=== PATIENT | female | born 1945 | race Caucasian/White ===

== ENCOUNTER 2018-07-06 10:09 | Outpatient (REF) | payer MEDICARE, SELFPAY ==
[2018-07-06 19:16] LABS: HCT 42.6 % (36.0-46.0); HGB 14.4 g/dL (12.0-15.5); Mean Corp. HGB Concentration 33.8 g/dL (32.0-36.0); Mean Corpuscular Hemoglobin 32.6 pg (27.0-33.0); Mean Corpuscular Volume 96.4 fL (80-95); Mean Platelet Volume 10.3 fL (8.0-11.0); Platelet Count 289 x1000/uL (130-400); RBC 4.42 m/cumm (4.00-5.20); RBC Distribution Width 12.5 % (11.7-14.6); White Blood Cell Count 7.44 k/cumm (4.4-10.8)
[2018-07-06 19:24] LABS: Iron 170 ug/dL (50-175)
[2018-07-06 19:38] LABS: Anion Gap 9.3 mmol/L (3-11); BUN 16 mg/dL (7-18); CO2 28.7 mmol/L (21.0-32.0); Calcium 9.4 mg/dL (8.5-10.1); Chloride 104 mmol/L (98-107); Estimated GFR 54.35 (mL/min/1.73m2); Ferritin 164 ng/mL (8-388); Glucose 114 mg/dL (70-100); Potassium 4.8 mmol/L (3.5-5.1); Sodium 142 mmol/L (136-145); TSH 0.99 uIU/mL (0.358-3.74)
== END 2018-07-06 10:29 ==
LOC: NCHCN 10:09
PROVIDERS: PCP Internal Medicine; Visit Provider Nurse Practitioner Family
DX: R53.83 Other fatigue (principal); R79.89 Other specified abnormal findings of blood chemistry; Z85.07 Personal history of malignant neoplasm of pancreas; R73.02 Impaired glucose tolerance (oral)
CPT/HCPCS: 80048; 85027; 82728; 83540; 84443

== ENCOUNTER 2018-10-27 14:46 | Outpatient (CLI) | payer MEDICARE, SELFPAY ==
--- NOTE | 2018-10-27 08:41 | DI.RAD_ITS ---
SYMPTOM/DIAGNOSIS: WHEEZING, R06.2 PA AND LATERAL CHEST: No priors. Heart size and pulmonary vasculature are within normal limits. The lungs are clear. No infiltrates or pneumothorax is identified. There is blunting of the posterior costophrenic angles. This may reflect scarring. No gross effusions are identified. Degenerative changes are seen in the spine. IMPRESSION: No acute pulmonary process.
== END 2018-10-27 15:06 ==
PROVIDERS: PCP Internal Medicine; Visit Provider Nurse Practitioner Family
DX: R06.2 Wheezing (principal)
CPT/HCPCS: 71046

== ENCOUNTER 2021-03-22 12:56 | Observation (INO) | payer MEDICARE, SELFPAY ==
[2021-03-22 12:59] VITALS: BP 132/83; PULSE 99; RESP 18; TEMP 36; O2SAT 98
[2021-03-22] MEDS: Normal Saline Flush 10 ML SYR IVP (13:15)
--- NOTE | 2021-03-22 13:15 | RT.EKG_ITS ---
APPROVED REPORT Exam: Resting ECG Reason for Exam: abdominal pain Patient Location: E HR:78 bpm ECG Measurements Heart Rate 78 AXIS MA 131 P 71 QRSd 80 QRS 56 QT 411 T 62 QTc 470 Conclusion Sinus rhythm...normal P axis, V-rate 60- 99
[2021-03-22 14:00] LABS: Absolute Basophil Count 0.03 10^3/uL (0.0-0.2); Absolute Eosinophil Count 0.02 10^3/uL (0.0-0.7); Absolute Lymphocyte Count 0.56 10^3/uL (1.2-3.4); Absolute Monocyte Count 1.39 10^3/uL (0.1-0.8); Absolute Neutrophil Count 14.47 10^3/uL (1.2-6.7); Basophils % 0.2; Eosinophils % 0.1; HCT 46.1 % (36.0-46.0); HGB 15.4 g/dL (11.2-15.7); Immature Grans % 0.6; Lymphocytes % 3.4; MCH 31.7 pg (27.0-33.0); MCHC 33.4 % (32.0-36.0); MCV 94.9 fL (80-95); MPV 9.5 fL (8.0-11.0); Monocytes % 8.4; Neutrophils % 87.3; Nucleated RBC 0 %; Platelet Count 289 10^3/uL (130-400); RBC 4.86 10^6/uL (3.93-5.22); RDW 13.1 % (11.7-14.6); RDW-SD 46.3 fL; WBC 16.57 10^3/uL (4.4-10.8)
[2021-03-22] MEDS: Lactated Ringers 1,000 ML 125 ML IV (14:00)
[2021-03-22] MEDS: HYDROmorphone 2 MG/ML VIAL 1 MG IVP (14:00)
[2021-03-22 14:14] LABS: ALT 26 U/L (14-59); AST 26 U/L (15-37); Albumin 4.1 g/dL (3.4-5.0); Alkaline Phosphatase 143 U/L (46-116); Anion Gap 11.1 mmol/L (3-11); BUN 22 mg/dL (7-18); Bilirubin, Total 0.7 mg/dL (0.2-1.0); CO2 25.9 mmol/L (21.0-32.0); CREATININE 1.1 mg/dL (0.55-1.02); Calcium 9.2 mg/dL (8.5-10.1); Chloride 105 mmol/L (98-107); Estimated GFR 48.29 (mL/min/1.73m2); Glucose 110 mg/dL (74-106); Lipase 45 U/L (73-393); Potassium 3.7 mmol/L (3.5-5.1); Sodium 142 mmol/L (136-145); Total Protein 7.6 g/dL (6.4-8.2)
--- NOTE | 2021-03-22 14:14 | ED.GENADUL_ITS ---
Discharge Plan Disposition Patient Disposition: [facility] INPATIENT Condition: Serious Discharge Details Clinical Impression: Abdominal pain Primary Care Provider: Ramin Singh ED Provider: Ryan Eduardo Medical Decision Making 1423 --75-year-old female 10 years status post Whipple presents with severe abdominal pain. Patient tender diffusely with guarding and rebound. Consider acute surgical pathology including no obstruction, recurrence of cancer. Please obtain CT of the abdomen pelvis. Dilaudid 1 mg IV for pain. IV fluid initiated. Patient remained npo. -- Labs reviewed and leukocytosis noted. -- CT a/p interpreted by radiology: IMPRESSION: 1. There has been resection of the pancreatic head and neck distal stomach and gallbladder with bili 0 enterostomy and subsequent air within the intrahepatic ducts. 2. There is no abnormal tissue evident at the surgical site. No lymphadenopathy. No vascular encasement. No evidence of acute inflammatory process. No bowel obstruction. 3. Sigmoid diverticulosis but no diverticulitis. No appendicitis. -- Patient reassessed- pain improved with dilaudid. Remains tender. Patient had episode of vomiting and was given zofran. IVF bolus given. 1817 -- Plan to hospitalize for serial abdominal exams and pain control. 1914 -- I spoke with Dr. Hoyos, discussed Ed presentation and course, he will admit patient. Care transitioned to Dr. Hoyos. Lactate and Covid test pending. HPI General Mode of arrival: EMS . Date/Time Provider Initiated Documentation: 03/22/21 13:48 . Limitations to Documentation: no limitations . Information obtained by: patient . HPI Narrative: 75-year-old female who presents with abdominal pain. Patient pain started around 9 AM this morning. Pain is constant. Pain was more severe and sharp. Described as a burning and moderate intensity. Pain worse on palpation of her abdomen. Has no associated nausea vomiting. No fever. Patient notes she is approximately 10 years status post work-up for unknown cancer. Related Data Allergies Allergy/AdvReac Type Severity Reaction Status Date / Time egg Allergy Unverified 03/22/21 13:18 acetaminophen AdvReac Unverified 03/22/21 13:18 General Stated Complaint: Abd Prob BRIAN: 3 Review of Systems All systems reviewed & are unremarkable except as noted in HPI and below Constitutional Constitutional: Denies fever(s) Gastrointestinal Gastrointestinal: Reports abdominal pain [facility] Surgical History (Updated 03/22/21 @ 14:22 by Ryan Eduardo MD) History of Whipple procedure Social History Smoking/Tobacco Use Status: Former Tobacco Use Smoking risk assessment performed?: Yes Alcohol Intake: current Alcohol Intake frequency: 0-2 drinks per day Alcohol type: wine Substance use type: does not use Do you feel safe at home: Yes Do you feel safe in your relationship?: Yes Exam Const General: cooperative and no acute distress HENMT Mouth: moist mucous membranes Eyes Conjunctivae: normal conjunctivae Sclera: normal sclerae Neck Neck: trachea midline and supple Resp Auscultation: clear to auscultation bilaterally, no rales, no rhonchi and no wheezes Cardio Rate: regular rate and not tachycardic Rhythm: regular rhythm GI Palpation: soft, not firm, guarding, no masses, not rigid and tender (Diffuse) with rebound tenderness Auscultation: hypoactive bowel sounds Skin General skin exam: no rashes or lesions noted Neuro General: patient alert, patient awake, patient oriented x3 and tone normal Extrem General: no edema Psych Appearance: grossly normal Mental Status: mental status grossly normal Speech and Movement: speech and movement normal Course Vital Signs Vital signs: Vital Signs Temperature 36 C L 03/22/21 12:59 Pulse 99 H 03/22/21 12:59 Respiratory Rate 18 03/22/21 12:59 Blood Pressure 132/83 03/22/21 12:59 Pulse Oximetry 98 03/22/21 12:59 Temperature 36 C L 03/22/21 12:59 Temperature Source Tympanic 03/22/21 12:59 Pulse 99 H 03/22/21 12:59 Respiratory Rate 18 03/22/21 12:59 Respiratory Effort 03/22/21 13:18 Blood Pressure 132/83 03/22/21 12:59 Blood Pressure Position Supine 03/22/21 12:59 Pulse Oximetry 98 03/22/21 12:59 Oxygen Delivery Method Room Air 03/22/21 12:59 Oxygen Flow Rate 0 03/22/21 12:59 Pain Level 6 03/22/21 12:59 Lab/Test Results Lab/Test Results: Laboratory Tests Range/Units 03/22/21 13:30 WBC (4.4-10.8) 10^3/uL 16.57 H RBC (3.93-5.22) 10^6/uL 4.86 Hgb (11.2-15.7) g/dL 15.4 Hct (36.0-46.0) % 46.1 H MCV (80-95) fL 94.9 MCH (27.0-33.0) pg 31.7 MCHC (32.0-36.0) % 33.4 RDW (11.7-14.6) % 13.1 Plt Count (130-400) 10^3/uL 289 MPV (8.0-11.0) fL 9.5 Immature Gran % 0.6 Neutrophils % 87.3 Lymphocytes % 3.4 Monocytes % 8.4 Eosinophils % 0.1 Basophils % 0.2 Nucleated RBC % % 0 Absolute Neutrophils (1.2-6.7) 10^3/uL 14.47 H Absolute Lymphocytes (1.2-3.4) 10^3/uL 0.56 L Absolute Monocytes (0.1-0.8) 10^3/uL 1.39 H Absolute Eosinophils (0.0-0.7) 10^3/uL 0.02 Absolute Basophils (0.0-0.2) 10^3/uL 0.03
[2021-03-22 14:55] LABS: Bilirubin Moderate (Negative); Blood Negative (Negative); Clarity Clear (Clear); Glucose Negative (Negative); Ketones 40 mg/dL (Negative); Leukocyte Esterase Negative (Negative); Nitrite Negative (Negative); Specific Gravity >= 1.030 (1.005-1.025)
[2021-03-22 14:56] LABS: Bacteria Negative HPF (Negative); C & S Indicated? No; Casts 10-20 Hyaline LPF (Negative); Crystals Few Amorphous HPF (Negative); Epithelial Cells Few HPF (Negative); Mucus Moderate (Negative); RBC Negative HPF (0-2); WBC Negative HPF (0-5)
--- NOTE | 2021-03-22 15:00 | DI.CT_ITS ---
Exam(s) CT ABDOMEN PELVIS W EXAM: CT ABDOMEN PELVIS W CLINICAL HISTORY: severe abd pain with guardng 9a,10yr post wipple. TECHNIQUE: Imaging Protocol: Axial computed tomography images with coronal and sagittal reformatted images were created and reviewed CONTRAST MATERIAL: Intravenous: Omnipaque 100cc Oral: None COMPARISON: No exams were available for comparison FINDINGS: VISUALIZED LUNG BASES: No nodules nor pleural effusions evident. ABDOMEN: There is no ascites. There is evidence of Billroth surgery with resection of the head of the pancrea s and bilioenterostomy. There is air within intrahepatic ducts, particularly in the left lobe. Ther e is mild dilatation of right ducts. Gallbladder is surgically absent. No abnormal collection in th is region. Stomach is not distended and no obvious abnormality at the level of the gastro jejunostom y. There is no evidence of mass nor fluid collection in the parminder hepatis region. Portal vein confluenc e and portal vein are patent. No prominent lymphadenopathy in this region. Superior mesenteric min ry and vein appear clear without abnormal tissue in the facets in the of these vessels. LIVER: There are no focal hepatic lesions evident . PANCREAS: Pancreatic head and neck are surgically absent. Body and tail appear unremarkable. Pancre atic duct is not dilated. SPLEEN: Spleen is not enlarged. No obvious intrasplenic lesions. Splenic and portal veins are paten t. ADRENALS: There are no significant adrenal masses. KIDNEYS:No cysts evident. No solid renal masses. No calculi nor hydronephrosis.. ABDOMINAL AORTA: Calcified but not enlarged. LYMPH NODES:There is no retroperitoneal nor paraaortic adenopathy. ABDOMINAL WALL: No evidence of significant anterior abdominal wall nor inguinal hernia. GI: There is no evidence of bowel obstruction, free air, nor abscess. PELVIS: GI: No evidence of appendicitis.Sigmoid diverticulosis. No obvious acute diverticulitis. LYMPH NODES: There is no intrapelvic nor inguinal adenopathy. REPRODUCTIVE: Uterus and adnexal regions appear age-appropriate. No free fluid. URINARY BLADDER: Uniformly thickened wall, possibly related to under distension. OSSEOUS: No significant osseous lesions. IMPRESSION: 1. There has been resection of the pancreatic head and neck distal stomach and gallbladder with bili 0 enterostomy and subsequent air within the intrahepatic ducts. 2. There is no abnormal tissue evident at the surgical site. No lymphadenopathy. No vascular encase ment. No evidence of acute inflammatory process. No bowel obstruction. 3. Sigmoid diverticulosis but no diverticulitis. No appendicitis. RADIATION DOSE DELIVERED: 751.71mGy.cm Total DLP DATA REPOSITORY: All CT scans at this facility are submitted to the National Radiology Data Registry (NRDR) Dose Index Registry (DIR) with the [employer] (ACR). RADIATION OPTIMIZATION: All CT scans at this facility use at least one of these dose optimization te chniques: automated exposure control; mA and/or kV adjustment per patient size (includes targeted exa ms where dose is matched to clinical indication); or iterative reconstruction.
[2021-03-22] MEDS: Ondansetron 4 MG/2 ML VIAL IVP (16:40)
[2021-03-22] MEDS: Lactated Ringers 500 ML 1000 ML IV (16:42)
[2021-03-22 19:29] LABS: Lactate 0.9 mmol/L (0.6-1.4)
[2021-03-22 19:31] VITALS: BP 155/49; PULSE 71; TEMP 36.6; O2SAT 96
[2021-03-22 19:34] LABS: Source Nasal/Nares
--- NOTE | 2021-03-22 19:45 | RT.EKG_ITS ---
APPROVED REPORT Exam: Resting ECG Reason for Exam: abd pain Patient Location: E HR:79 bpm ECG Measurements Heart Rate 79 AXIS HI 100 P 261 QRSd 80 QRS 44 QT 418 T 30 QTc 464 Conclusion Sinus or ectopic atrial rhythm...P axis (-45,135) Atrial premature complexes in couplets...pair SV complexes w/ short R-R. Sinus. PACs. No STEMI. I have reviewed and interpreted ECG and agree with software generated interpretation.
--- NOTE | 2021-03-22 20:04 | HPE_ITS ---
Date of service: 03/22/21 Time of Service: 20:04 Assessment and Plan Assessment and plan (1) Abdominal pain: Status: Acute Assessment and plan: etiology of the abdominal pain is not clear. I have discussed the situation with general surgery who will review the situation. The patient will be admitted to the hospital for observation. Repeat labs will be done tomorrow. I am getting a chest x-ray to make sure she does not have any pneumonia and an electrocardiogram and troponin will be checked also. (2) Leukocytosis, unspecified: Status: Acute History of Present Illness History of Present Illness Chief Complaint: abdominal pain Narrative: This 75-year-old female lives by herself and is here because of abdominal pain. She went out to her garden this morning to do some planting of bulbs and raking and after she came back into the house she developed severe low abdominal pain with radiation to her low back. She said it was quite sharp. She developed some diaphoresis and tried to go to the bathroom to have a bowel movement but she found some difficulty with that. The diaphoresis persisted and she came to the hospital for further evaluation. She continues having low abdominal pain but now there is some radiation to the right scapula. She does not recall having any prior history of this pain. She vomited once and she came here. She has had no nausea. About 11 years ago she had abdominal surgery that included some surgery on her pancreas and there was concern about her bile ducts. She is not clear about the extent of the surgery but it was surgery for cancer. She denies having pancreatic cancer. She is also had a cholecystectomy. She was evaluated in the emergency department with lab tests and a CT scan of the abdomen. Dr. Eduardo thought she should be admitted on observation with serial abdominal exams and repeat lab tests. She was found to have an elevated white blood cell count of 16,000 but her other labs were normal. CT scan shows no acute abnormalities. She did receive ondansetron and hydromorphone. Review of Systems Constitutional Constitutional: Denies chills, Denies fever(s) and Denies night sweats Cardiovascular Cardiovascular: Denies chest pain, Denies rapid heart rate, Denies irregular hea rt rhythm and Reports dyspnea on exertion Respiratory Respiratory: Denies chest congestion, Denies cough, Reports dyspnea on exertion and Denies wheezing Gastrointestinal Gastrointestinal: Reports abdominal pain, Denies change in stool character, Denies heartburn, Denies diarrhea, Denies nausea and Reports vomiting Genitourinary Genitourinary: Denies hematuria, Denies urinary frequency, Denies difficulty voiding and Denies dysuria Integumentary/Breasts Skin/Breast: Denies new lesions and Denies rash Allergic/Immunologic Allergic/Immunologic: Denies wheezing [facility] Surgical History (Updated 03/22/21 @ 14:22 by Ryan Eduardo MD) History of Whipple procedure Social History Smoking/Tobacco Use Status: Former Tobacco Use Smoking risk assessment performed?: Yes Alcohol Intake: current Alcohol Intake frequency: 0-2 drinks per day Alcohol type: wine Substance use type: does not use Do you feel safe at home: Yes Do you feel safe in your relationship?: Yes Meds Allergies and Home Medications Allergies Allergy/AdvReac Type Severity Reaction Status Date / Time egg Allergy Unverified 03/22/21 13:18 acetaminophen AdvReac Unverified 03/22/21 13:18 Exam Const General: cooperative, healthy appearing and not ill appearing Orientation: alert, awake and oriented x3 Neck Neck: normal visual inspection and no lymphadenopathy Resp Effort & Inspection: normal respiratory effort and able to speak in complete sentences Auscultation: no rales, no rhonchi and no wheezes Cardio Jugular venous pressure: no JVD Rate: regular rate Rhythm: regular rhythm Heart Sounds: S1 normal, S2 normal, no gallops and no murmurs GI Inspection: normal to inspection and non-distended Palpation: guarding and tender Skin General skin exam: no rashes or lesions noted Extrem Right lower extremity: no edema Left lower extremity: no edema Results Labs Result diagrams: 03/22/21 13:30 03/22/21 13:30 Labs: Laboratory Results - last 24 hr 03/22/21 03/22/21 03/22/21 13:30 13:30 14:35 WBC 16.57 H RBC 4.86 Hgb 15.4 Hct 46.1 H MCV 94.9 MCH 31.7 MCHC 33.4 RDW 13.1 Plt Count 289 MPV 9.5 Immature Gran % 0.6 Neutrophils % 87.3 Lymphocytes % 3.4 Monocytes % 8.4 Eosinophils % 0.1 Basophils % 0.2 Nucleated RBC % 0 Absolute Neutrophils 14.47 H Absolute Lymphocytes 0.56 L Absolute Monocytes 1.39 H Absolute Eosinophils 0.02 Absolute Basophils 0.03 VBG Lactate Sodium 142 Potassium 3.7 Chloride 105 Carbon Dioxide 25.9 Anion Gap 11.1 H BUN 22 H Creatinine 1.1 H Estimated GFR/1.73 m2 48.29 Glucose 110 H Calcium 9.2 Magnesium 2.0 Total Bilirubin 0.7 AST 26 ALT 26 Alkaline Phosphatase 143 H Total Protein 7.6 Albumin 4.1 Lipase 45 Urine Color Dark Yellow Urine Clarity Clear Urine pH 5.0 Ur Specific [place] >= 1.030 H Urine Protein 30 H Urine Ketones 40 H Urine Blood Negative Urine Nitrite Negative Urine Bilirubin Moderate H Urine Urobilinogen 2.0 H Ur Leukocyte Esterase Negative Urine RBC Negative Urine WBC Negative Ur Epithelial Cells Few Urine Crystals Few Amorphous Urine Bacteria Negative Urine Casts 10-20 Hyaline Urine Mucus Moderate Ur Culture Indicated? No Urine Glucose Negative COVID-19 Source 03/22/21 03/22/21 19:23 19:24 WBC RBC Hgb Hct MCV MCH MCHC RDW Plt Count MPV Immature Gran % Neutrophils % Lymphocytes % Monocytes % Eosinophils % Basophils % Nucleated RBC % Absolute Neutrophils Absolute Lymphocytes Absolute Monocytes Absolute Eosinophils Absolute Basophils VBG Lactate 0.9 Sodium Potassium Chloride Carbon Dioxide Anion Gap BUN Creatinine Estimated GFR/1.73 m2 Glucose Calcium Magnesium Total Bilirubin AST ALT Alkaline Phosphatase Total Protein Albumin Lipase Urine Color Urine Clarity Urine pH Ur Specific [place] Urine Protein Urine Ketones Urine Blood Urine Nitrite Urine Bilirubin Urine Urobilinogen Ur Leukocyte Esterase Urine RBC Urine WBC Ur Epithelial Cells Urine Crystals Urine Bacteria Urine Casts Urine Mucus Ur Culture Indicated? Urine Glucose COVID-19 Source Nasal/Nares Last Vital Signs Temp 36.6 C 03/22/21 19:31 Pulse 71 03/22/21 19:31 Resp 18 03/22/21 12:59 BP 155/49 H 03/22/21 19:31 Pulse Ox 96 03/22/21 19:31
[2021-03-22 20:18] LABS: Troponin I < 0.05 ng/mL (<0.06)
--- NOTE | 2021-03-22 20:52 | W.PM.PROGNOT ---
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 This was found incidentally after she had a common bile duct stone and had to undergo ERCP. Her gallbladder is out. They did leave the distal tail of the pancreas. Patient has not been consistent in her follow-ups for cancer. Her last visit to [facility] was in 2019. I did review her CT scans and she always has had pneumobilia so this is not a new finding for her. I did review her CT scans from today and I do not see any etiology for her abdominal pain. Chest x-ray is normal Labs are otherwise normal. I did order an MRCP and a CA 19-9 to be done in a.m. I do not see any source of infection in the abdomen. Continue with supportive care Objective Last Vital Signs Temp 36.6 C 03/22/21 19:31 Pulse 71 03/22/21 19:31 Resp 18 03/22/21 12:59 BP 155/49 H 03/22/21 19:31 Pulse Ox 96 03/22/21 19:31 Laboratory Results - last 24 hr 03/22/21 03/22/21 03/22/21 13:30 13:30 14:35 WBC 16.57 H RBC 4.86 Hgb 15.4 Hct 46.1 H MCV 94.9 MCH 31.7 MCHC 33.4 RDW 13.1 Plt Count 289 MPV 9.5 Immature Gran % 0.6 Neutrophils % 87.3 Lymphocytes % 3.4 Monocytes % 8.4 Eosinophils % 0.1 Basophils % 0.2 Nucleated RBC % 0 Absolute Neutrophils 14.47 H Absolute Lymphocytes 0.56 L Absolute Monocytes 1.39 H Absolute Eosinophils 0.02 Absolute Basophils 0.03 VBG Lactate Sodium 142 Potassium 3.7 Chloride 105 Carbon Dioxide 25.9 Anion Gap 11.1 H BUN 22 H Creatinine 1.1 H Estimated GFR/1.73 m2 48.29 Glucose 110 H Calcium 9.2 Magnesium 2.0 Total Bilirubin 0.7 AST 26 ALT 26 Alkaline Phosphatase 143 H Troponin I Total Protein 7.6 Albumin 4.1 Lipase 45 Urine Color Dark Yellow Urine Clarity Clear Urine pH 5.0 Ur Specific [place] >= 1.030 H Urine Protein 30 H Urine Ketones 40 H Urine Blood Negative Urine Nitrite Negative Urine Bilirubin Moderate H Urine Urobilinogen 2.0 H Ur Leukocyte Esterase Negative Urine RBC Negative Urine WBC Negative Ur Epithelial Cells Few Urine Crystals Few Amorphous Urine Bacteria Negative Urine Casts 10-20 Hyaline Urine Mucus Moderate Ur Culture Indicated? No Urine Glucose Negative COVID-19 Source 03/22/21 03/22/21 03/22/21 19:23 19:23 19:24 WBC RBC Hgb Hct MCV MCH MCHC RDW Plt Count MPV Immature Gran % Neutrophils % Lymphocytes % Monocytes % Eosinophils % Basophils % Nucleated RBC % Absolute Neutrophils Absolute Lymphocytes Absolute Monocytes Absolute Eosinophils Absolute Basophils VBG Lactate 0.9 Sodium Potassium Chloride Carbon Dioxide Anion Gap BUN Creatinine Estimated GFR/1.73 m2 Glucose Calcium Magnesium Total Bilirubin AST ALT Alkaline Phosphatase Troponin I < 0.05 Total Protein Albumin Lipase Urine Color Urine Clarity Urine pH Ur Specific [place] Urine Protein Urine Ketones Urine Blood Urine Nitrite Urine Bilirubin Urine Urobilinogen Ur Leukocyte Esterase Urine RBC Urine WBC Ur Epithelial Cells Urine Crystals Urine Bacteria Urine Casts Urine Mucus Ur Culture Indicated? Urine Glucose COVID-19 Source Nasal/Nares
--- NOTE | 2021-03-22 20:55 | DI.RAD_ITS ---
Exam(s) XR PORTABLE CHEST AP EXAM: XR PORTABLE CHEST AP CLINICAL HISTORY: abd pain, leukocytosis TECHNIQUE: 2D digital imaging was performed of the chest. One image was obtained. An AP view was ob tained. COMPARISON: No exams were available for comparison FINDINGS: MEDIASTINUM: Normal. HEART: Normal. PULMONARY VASCULATURE: Normal. LUNGS: Clear. PLEURAL SPACE: No pleural effusion or pneumothorax. BONE:Within normal limits for the patient's age. OTHER FINDINGS:Normal. IMPRESSION: No acute pulmonary findings. DATA REPOSITORY: RADIATION DOSE DELIVERED:
--- NOTE | 2021-03-22 21:02 | DI.VRAD_ITS ---
PROCEDURE INFORMATION: Exam: XR Chest Exam date and time: 03/22/2021 8:03 PM Age: 75 years old Clinical indication: Other: Leukocytosis; Patient HX: Abd pain TECHNIQUE: Imaging protocol: XR of the chest. Views: 1 view. COMPARISON: CR XR CHEST 2V PA LATERAL 10/27/2018 8:36 AM FINDINGS: Lungs: Unremarkable. No consolidation. Pleural spaces: Unremarkable. No pleural effusion. No pneumothorax. Heart/Mediastinum: Unremarkable. No cardiomegaly. Bones/joints: Unremarkable. IMPRESSION: No acute findings. Dictated and Authenticated by: Rony Kuhn MD. Ordering:BAO Correa MD
[2021-03-22] MEDS: HYDROmorphone 2 MG/ML VIAL 0.5 MG IVP (21:10)
[2021-03-22 22:17] VITALS: BP 158/71; PULSE 82; RESP 19; TEMP 36; O2SAT 96
[2021-03-22] MEDS: Lactated Ringers 1,000 ML 100 ML IV (23:03)
[2021-03-22 23:25] VITALS: BP 141/64; PULSE 71; RESP 19; TEMP 36.1; O2SAT 94
[2021-03-22 23:34] LABS: COVID-19 PCR Negative (Negative)
--- NOTE | 2021-03-23 | DI.CT_ITS ---
Exam(s) CT ABDOMEN PELVIS CTA EXAM: CT ABDOMEN PELVIS CTA CLINICAL HISTORY: WHIPPLE 10 YRS AGO, MESENTERIC ISCHEMIA PROTOCOL. TECHNIQUE: Imaging Protocol: Axial CT angiography was performed with multi-slice acquisition and m ulti-planar and/or 3D reconstructions. CONTRAST MATERIAL: Intravenous: Omnipaque 350 Contrast volume:100 mL Oral: No COMPARISON: CT CT ABDOMEN PELVIS W from 03/22/2021 FINDINGS: ABDOMEN AND PELVIS: Abdomen: Celiac axis/mesenteric arteries: No evidence of occlusion or significant stenosis. Renal Arteries: No evidence of occlusion or significant stenosis. There is a single renal artery perf using each kidney. Aorta: No evidence of occlusion or significant stenosis. No aneurysm or dissection. Moderate atheros clerosis. Pelvis: Iliac Arteries: No evidence of occlusion or significant stenosis. Mild atherosclerosis in the common iliac arteries. Mild atherosclerosis of the internal iliac arteries bilaterally. Common Femoral Arteries: No evidence of occlusion or significant stenosis. Mild atherosclerosis bila terally. ABDOMEN: Lung bases: Mild dependent atelectasis. Liver: Normal density. No measurable mass. Portal, Superior Mesenteric, and Splenic Veins: Unremarkable. Gallbladder and Biliary Tract: Status post Whipple's procedure. There is pneumobilia present. Pancreas: There is atrophy of the body and tail of the pancreas. Spleen: Normal. Adrenals: No masses seen. Kidneys: Normal size, contour and axis. No radiodense stones or obstructive uropathy. No masses seen. Bowel: No evidence of bowel obstruction. There is diverticulosis seen in the descending and sigmoid colon. There is unchanged thickening of the wall of the descending and sigmoid colon but no pericolo shanta inflammatory changes present. These findings are likely chronic. A normal retrocecal appendix i s present. Peritoneal Cavity: No ascites, collection or mesenteric inflammatory response. No definite free air i s seen. Lymph Nodes: Within normal limits. Bones: Unremarkable. Soft Tissues: Unremarkable. PELVIS: Bladder: The urinary bladder is incompletely distended. No gross abnormality is identified. Reproductive Organs: Unremarkable as visualized. Lymph Nodes: Within normal limits. Bones: Within normal limits. IMPRESSION: 1. Mild atherosclerosis but no evidence of arterial occlusion or significant stenosis. 2. No evidence of occlusion or thrombosis in the portal, superior mesenteric or splenic veins. 3. Status post Whipple's procedure. 4. Colonic diverticulosis but no findings to suggest acute diverticulitis. RADIATION DOSE DELIVERED: 1,433.82mGy.cm Total DLP DATA REPOSITORY: All CT scans at this facility are submitted to the National Radiology Data Registry (NRDR) Dose Index Registry (DIR) with the [employer] (ACR). RADIATION OPTIMIZATION: All CT scans at this facility use at least one of these dose optimization te chniques: automated exposure control; mA and/or kV adjustment per patient size (includes targeted exa ms where dose is matched to clinical indication); or iterative reconstruction.
--- NOTE | 2021-03-23 | DI.RAD_ITS ---
Exam(s) XR CHEST 2V PA LATERAL EXAM: XR CHEST 2V PA LATERAL CLINICAL HISTORY: ELEVATED WBC,NO SOURCE FOR INFECTION,S/P WHIPPLE TECHNIQUE: 2D digital imaging was performed of the chest. Two images were obtained. PA and lateral views were obtained. COMPARISON: CR XR CHEST 2V PA LATERAL from 10/27/2018 CR,XR XR PORTABLE CHEST AP from 03/22/2021 CR,XR XR PORTABLE CHEST AP from 03/22/2021 FINDINGS: MEDIASTINUM: Normal. HEART: Normal. PULMONARY VASCULATURE: Normal. LUNGS: Clear. PLEURAL SPACE: No pleural effusion or pneumothorax. BONE:Within normal limits for the patient's age. OTHER FINDINGS:Normal. IMPRESSION: No acute pulmonary findings. DATA REPOSITORY: RADIATION DOSE DELIVERED:
[2021-03-23 01:51] LABS: Troponin I < 0.05 ng/mL (<0.06)
[2021-03-23] MEDS: HYDROmorphone 2 MG/ML VIAL 0.5 MG IVP ×3 (02:31→11:53)
[2021-03-23 03:10] VITALS: BP 144/68; PULSE 74; RESP 19; TEMP 35.8; O2SAT 92
[2021-03-23 06:48] LABS: Lactate 0.8 mmol/L (0.6-1.4)
[2021-03-23 06:50] LABS: Abs Immature Grans 0.03 10^3/uL (0.0-0.06); Absolute Basophil Count 0.02 10^3/uL (0.0-0.2); Absolute Eosinophil Count 0.02 10^3/uL (0.0-0.7); Absolute Lymphocyte Count 0.81 10^3/uL (1.2-3.4); Absolute Monocyte Count 0.62 10^3/uL (0.1-0.8); Basophils % 0.2; Eosinophils % 0.2; HCT 38.9 % (36.0-46.0); Immature Grans % 0.3; Lymphocytes % 9.4; MCH 31.6 pg (27.0-33.0); MCHC 33.4 % (32.0-36.0); MCV 94.6 fL (80-95); MPV 9.4 fL (8.0-11.0); Monocytes % 7.2; Neutrophils % 82.7; Nucleated RBC 0 %; Platelet Count 238 10^3/uL (130-400); RBC 4.11 10^6/uL (3.93-5.22); RDW 13.3 % (11.7-14.6); WBC 8.61 10^3/uL (4.4-10.8)
[2021-03-23 06:52] LABS: Absolute Neutrophil Count 7.12 10^3/uL (1.2-6.7)
[2021-03-23 07:19] LABS: ALT 21 U/L (14-59); AST 19 U/L (15-37); Albumin 3.2 g/dL (3.4-5.0); Alkaline Phosphatase 114 U/L (46-116); Anion Gap 5.8 mmol/L (3-11); BUN 15 mg/dL (7-18); Bilirubin, Total 0.8 mg/dL (0.2-1.0); C-Reactive Protein 0.86 mg/dL (0.0-0.3); CO2 29.2 mmol/L (21.0-32.0); CREATININE 0.9 mg/dL (0.55-1.02); Calcium 8.7 mg/dL (8.5-10.1); Chloride 107 mmol/L (98-107); Glucose 105 mg/dL (74-106); Sodium 142 mmol/L (136-145); Total Protein 6.2 g/dL (6.4-8.2)
[2021-03-23 07:44] LABS: Procalcitonin < 0.1 ng/mL
[2021-03-23 08:40] VITALS: BP 148/77; PULSE 76; RESP 16; TEMP 37; O2SAT 95
--- NOTE | 2021-03-23 08:53 | PDOC.CMIN ---
- If Service Date Differs Date of service: 03/23/21 Time of Service: 08:53 Care Management Initial Assess REASON FOR HOSPITALIZATION:: Abdominal Pain PAST MEDICAL HISTORY/PAST SURGICAL HISTORY:: Surgical History (Updated 03/22/21 @ 14:22 by Ryan Eduardo MD). History of Whipple procedure PREVIOUS FUNCTIONAL STATUS/SOCIAL/FAMILY SUPPORTS:: Jennifer lives alone in [place], [place] with her cat. 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 She is independent at baseline and drives. Jennifer does not have any family nearby, however her friend Stella Gruber is supportive of her healthcare needs and helps her around the house when needed. CURRENT FUNCTIONAL STATUS:: Jennifer was lying in bed when CM met with her. She was alert, oriented and easily engaged in conversation. She reports that she's had a lot of testing here and is unsure of what if any treatment she would want at her age. She would like a referral to palliative care. Referral was placed. CM continues to support. ADVANCE DIRECTIVES:: None on File Has patient been provided with info about the portal/API?: Yes Did the patient sign up for the portal?: No CODE STATUS:: DNR/DNI ([facility] FORM ON CHART) INSURANCE COVERAGE / FINANCIAL ISSUES:: Medicare CURRENT HOME/COMMUNITY SERVICES/EQUIPMENT:: None at this time. PRIMARY CARE PHYSICIAN:: Ramin Singh POTENTIAL DISCHARGE NEEDS:: Palliative care referral ([facility] Palliative care does not cover the [facility]) PATIENT/FAMILY EDUCATION NEEDS:: Review discharge instructions and plan to follow up with community providers, ask me three. TRANSPORTATION:: Via private vehicle with friend Stella. PLAN:: Anticipate that Jennifer will return home via private vehicle with friend Stella when medically cleared by .
--- NOTE | 2021-03-23 09:18 | W.PM.PROGNOT ---
Date of Service Date of service: 03/23/21 Time of Service: 09:18 Assessment and Plan Assessment and plan (1) Abdominal pain: Status: Acute Assessment and plan: -Essentially all symptomatology has resolved -CT, CTA and MRCP without acute findings or concerns, expected post operative whipple findings -OK to resume PO diet and assess for tolerance -Will sign off please call for any questions or concerns Qualifiers: Abdominal location: generalized Qualified Code(s): R10.84 - Generalized abdominal pain (2) Hx of malignant neoplasm of bile duct: Status: Acute Subjective Subjective Patient reports: no new complaints and feels better; denies nausea and vomiting Exam Const General: cooperative, comfortable and no acute distress Resp Effort & Inspection: normal respiratory effort, no audible wheezes and no respiratory distress Cardio Rate: regular rate Rhythm: regular rhythm GI Inspection: non-distended Palpation: soft, no guarding and nontender Objective Last Vital Signs Temp 98.6 F 03/23/21 08:40 Pulse 76 03/23/21 08:40 Resp 16 03/23/21 08:40 BP 148/77 H 03/23/21 08:40 Pulse Ox 95 03/23/21 08:40 Laboratory Results - last 24 hr 03/22/21 03/22/21 03/22/21 13:30 13:30 14:35 WBC 16.57 H RBC 4.86 Hgb 15.4 Hct 46.1 H MCV 94.9 MCH 31.7 MCHC 33.4 RDW 13.1 Plt Count 289 MPV 9.5 Immature Gran % 0.6 Neutrophils % 87.3 Lymphocytes % 3.4 Monocytes % 8.4 Eosinophils % 0.1 Basophils % 0.2 Nucleated RBC % 0 Absolute Neutrophils 14.47 H Absolute Lymphocytes 0.56 L Absolute Monocytes 1.39 H Absolute Eosinophils 0.02 Absolute Basophils 0.03 VBG Lactate Sodium 142 Potassium 3.7 Chloride 105 Carbon Dioxide 25.9 Anion Gap 11.1 H BUN 22 H Creatinine 1.1 H Estimated GFR/1.73 m2 48.29 Glucose 110 H Calcium 9.2 Magnesium 2.0 Total Bilirubin 0.7 AST 26 ALT 26 Alkaline Phosphatase 143 H Troponin I C-Reactive Protein Total Protein 7.6 Albumin 4.1 Lipase 45 Procalcitonin Urine Color Dark Yellow Urine Clarity Clear Urine pH 5.0 Ur Specific [place] >= 1.030 H Urine Protein 30 H Urine Ketones 40 H Urine Blood Negative Urine Nitrite Negative Urine Bilirubin Moderate H Urine Urobilinogen 2.0 H Ur Leukocyte Esterase Negative Urine RBC Negative Urine WBC Negative Ur Epithelial Cells Few Urine Crystals Few Amorphous Urine Bacteria Negative Urine Casts 10-20 Hyaline Urine Mucus Moderate Ur Culture Indicated? No Urine Glucose Negative COVID-19 Source SARS-CoV-2 (PCR) 03/22/21 03/22/21 03/22/21 19:23 19:23 19:24 WBC RBC Hgb Hct MCV MCH MCHC RDW Plt Count MPV Immature Gran % Neutrophils % Lymphocytes % Monocytes % Eosinophils % Basophils % Nucleated RBC % Absolute Neutrophils Absolute Lymphocytes Absolute Monocytes Absolute Eosinophils Absolute Basophils VBG Lactate 0.9 Sodium Potassium Chloride Carbon Dioxide Anion Gap BUN Creatinine Estimated GFR/1.73 m2 Glucose Calcium Magnesium Total Bilirubin AST ALT Alkaline Phosphatase Troponin I < 0.05 C-Reactive Protein Total Protein Albumin Lipase Procalcitonin Urine Color Urine Clarity Urine pH Ur Specific [place] Urine Protein Urine Ketones Urine Blood Urine Nitrite Urine Bilirubin Urine Urobilinogen Ur Leukocyte Esterase Urine RBC Urine WBC Ur Epithelial Cells Urine Crystals Urine Bacteria Urine Casts Urine Mucus Ur Culture Indicated? Urine Glucose COVID-19 Source Nasal/Nares SARS-CoV-2 (PCR) Negative 03/23/21 03/23/21 03/23/21 01:25 06:30 06:30 WBC 8.61 D RBC 4.11 Hgb 13.0 D Hct 38.9 MCV 94.6 MCH 31.6 MCHC 33.4 RDW 13.3 Plt Count 238 MPV 9.4 Immature Gran % 0.3 Neutrophils % 82.7 Lymphocytes % 9.4 Monocytes % 7.2 Eosinophils % 0.2 Basophils % 0.2 Nucleated RBC % 0 Absolute Neutrophils 7.12 H Absolute Lymphocytes 0.81 L Absolute Monocytes 0.62 Absolute Eosinophils 0.02 Absolute Basophils 0.02 VBG Lactate Sodium 142 Potassium 4.0 Chloride 107 Carbon Dioxide 29.2 Anion Gap 5.8 BUN 15 D Creatinine 0.9 Estimated GFR/1.73 m2 >= 60.00 Glucose 105 Calcium 8.7 Magnesium Total Bilirubin 0.8 AST 19 ALT 21 Alkaline Phosphatase 114 Troponin I < 0.05 C-Reactive Protein 0.86 H Total Protein 6.2 L Albumin 3.2 L Lipase Procalcitonin Urine Color Urine Clarity Urine pH Ur Specific [place] Urine Protein Urine Ketones Urine Blood Urine Nitrite Urine Bilirubin Urine Urobilinogen Ur Leukocyte Esterase Urine RBC Urine WBC Ur Epithelial Cells Urine Crystals Urine Bacteria Urine Casts Urine Mucus Ur Culture Indicated? Urine Glucose COVID-19 Source SARS-CoV-2 (PCR) 03/23/21 06:30 WBC RBC Hgb Hct MCV MCH MCHC RDW Plt Count MPV Immature Gran % Neutrophils % Lymphocytes % Monocytes % Eosinophils % Basophils % Nucleated RBC % Absolute Neutrophils Absolute Lymphocytes Absolute Monocytes Absolute Eosinophils Absolute Basophils VBG Lactate 0.8 Sodium Potassium Chloride Carbon Dioxide Anion Gap BUN Creatinine Estimated GFR/1.73 m2 Glucose Calcium Magnesium Total Bilirubin AST ALT Alkaline Phosphatase Troponin I C-Reactive Protein Total Protein Albumin Lipase Procalcitonin < 0.1 Urine Color Urine Clarity Urine pH Ur Specific [place] Urine Protein Urine Ketones Urine Blood Urine Nitrite Urine Bilirubin Urine Urobilinogen Ur Leukocyte Esterase Urine RBC Urine WBC Ur Epithelial Cells Urine Crystals Urine Bacteria Urine Casts Urine Mucus Ur Culture Indicated? Urine Glucose COVID-19 Source SARS-CoV-2 (PCR)
[2021-03-23] MEDS: LORazepam 1 MG TAB PO (10:19)
[2021-03-23] MEDS: Omnipaque 350 MG/ML 100 ML BTL IJ (10:59)
[2021-03-23 11:42] VITALS: BP 146/73; PULSE 71; RESP 18; TEMP 36.7; O2SAT 94
--- NOTE | 2021-03-23 14:09 | PHA.REVIEW ---
Pharmacy Admission Review - Admission Clinical Review (Last Reviewed 03/22/21 @ 14:21 by Ryan Eduardo MD) Hx of malignant neoplasm of bile duct (Acute) Diverticula of colon (Acute) History of prior cigar smoking (Acute) Leukocytosis, unspecified (Acute) Abdominal pain (Acute) egg Allergy (Unverified 03/22/21 13:18) acetaminophen Adverse Reaction (Unverified 03/22/21 13:18) Resuscitation Status DNR/DNI Height 5 ft 3 in Weight 55.8 kg - Renal Dosing Renal Dosing: BUN 15 mg/dL (7-18) D 03/23/21 06:30 Creatinine 0.9 mg/dL (0.55-1.02) 03/23/21 06:30 Medications needing adjustments: Reviewed (Crlc ~43.99 mL/min current meds okay.) - Anticoagulation Anticoagulation: Hgb 13.0 g/dL (11.2-15.7) D 03/23/21 06:30 Hct 38.9 % (36.0-46.0) 03/23/21 06:30 Plt Count 238 10^3/uL (130-400) 03/23/21 06:30 Creatinine 0.9 mg/dL (0.55-1.02) 03/23/21 06:30 DVT Prophylaxis: N/A Therapeutic Anticoagulation: N/A - Opiate Usage Evaluate Pain Scale/Pains Meds: Reviewed Scheduled Bowel Reg ordered if on Opiates?: No (provider aware) - Relevant Labs Sodium 142 mmol/L (136-145) 03/23/21 06:30 Potassium 4.0 mmol/L (3.5-5.1) 03/23/21 06:30 Chloride 107 mmol/L (98-107) 03/23/21 06:30 Magnesium 2.0 mg/dL (1.8-2.4) 03/22/21 13:30 C-Reactive Protein 0.86 mg/dL (0.0-0.3) H 03/23/21 06:30 Electrolytes, C-Reactive P, ESR: Reviewed - DM Control DM Control: Glucose 105 mg/dL (74-106) 03/23/21 06:30 Insulin Dosing: N/A - Heart Failure/CO Heart Failure/CO: Troponin I < 0.05 ng/mL (<0.06) 03/23/21 01:25 EF%, ELAINE's, B-Blockers, Diuretics: Reviewed - BP Control BP Control: Blood Pressure 146/73 Blood Pressure 148/77 Blood Pressure 144/68 If elevated: Reviewed (BP has been elevated most of admission so far, no meds ordered.) - Qtc Review If Elevated: N/A (QTc 464 on most recent EKG since admission) - IV to PO Switch IV Medications: Reviewed (Currently NPO) - Home Meds Home Med List reviewed: Reviewed (no known home meds) - Current meds Current Medication Order Review: Intervened (Discontinued duplicate med orders.) - Comments Comments/Follow Ups: Watch BP, SCr, labs and for med changes.
[2021-03-23 15:48] VITALS: BP 158/73; PULSE 72; RESP 16; TEMP 36.2; O2SAT 92
--- NOTE | 2021-03-23 16:40 | W.PM.PROGNOT ---
Date of Service Date of service: 03/23/21 Time of Service: 16:40 Assessment and Plan Assessment and plan (1) Abdominal pain: Status: Acute Assessment and plan: Etiology remains unclear, but it has resolved. Suspect a viral gastroenteritis. Trial clear liquids tonight with plans to advance diet as tolerated for breakfast tomorrow. D/c IVF. No need for surgical intervention at this time. Transition to PO pain meds. (2) Leukocytosis, unspecified: Status: Resolved Assessment and plan: Suspect due to above (3) DVT prophylaxis: Status: Acute Assessment and plan: lovenox sc (4) Discharge planning issues: Status: Acute Assessment and plan: DNR/DNI Anticipate discharge home tomorrow Subjective Subjective Interval history since last seen: Mr Leon states that she is feeling better. She states that she really has not had any pain since the ER - now she is just having some of her regular pain under the right rib, which her normal. THe lower abdominal pain/suprapubic pain has nearly completely resolved. No nausea. NO BM or flatus today. No back pain. Denies dizziness, chest pain, shortness of breath, nausea. Interested in trying something to eat. Last time she did receive pain medication here was at around noon today (IV dilaudid). Exam Narrative Exam Narrative: General: Anxious elderly female, A&Ox3, appears quite comfortable HEENT: EOMI, MMM Heart: RRR, no m/r/g Lungs: CTAB Abdomen: soft, nontender, nondistended, + BS Extremities: no edema Objective Last Vital Signs Temp 36.2 C L 03/23/21 15:48 Pulse 72 03/23/21 15:48 Resp 16 03/23/21 15:48 BP 158/73 H 03/23/21 15:48 Pulse Ox 92 03/23/21 15:48 Laboratory Results - last 24 hr 03/22/21 03/22/21 03/22/21 19:23 19:23 19:24 WBC RBC Hgb Hct MCV MCH MCHC RDW Plt Count MPV Immature Gran % Neutrophils % Lymphocytes % Monocytes % Eosinophils % Basophils % Nucleated RBC % Absolute Neutrophils Absolute Lymphocytes Absolute Monocytes Absolute Eosinophils Absolute Basophils VBG Lactate 0.9 Sodium Potassium Chloride Carbon Dioxide Anion Gap BUN Creatinine Estimated GFR/1.73 m2 Glucose Calcium Total Bilirubin AST ALT Alkaline Phosphatase Troponin I < 0.05 C-Reactive Protein Total Protein Albumin Procalcitonin COVID-19 Source Nasal/Nares SARS-CoV-2 (PCR) Negative 03/23/21 03/23/21 03/23/21 01:25 06:30 06:30 WBC 8.61 D RBC 4.11 Hgb 13.0 D Hct 38.9 MCV 94.6 MCH 31.6 MCHC 33.4 RDW 13.3 Plt Count 238 MPV 9.4 Immature Gran % 0.3 Neutrophils % 82.7 Lymphocytes % 9.4 Monocytes % 7.2 Eosinophils % 0.2 Basophils % 0.2 Nucleated RBC % 0 Absolute Neutrophils 7.12 H Absolute Lymphocytes 0.81 L Absolute Monocytes 0.62 Absolute Eosinophils 0.02 Absolute Basophils 0.02 VBG Lactate Sodium 142 Potassium 4.0 Chloride 107 Carbon Dioxide 29.2 Anion Gap 5.8 BUN 15 D Creatinine 0.9 Estimated GFR/1.73 m2 >= 60.00 Glucose 105 Calcium 8.7 Total Bilirubin 0.8 AST 19 ALT 21 Alkaline Phosphatase 114 Troponin I < 0.05 C-Reactive Protein 0.86 H Total Protein 6.2 L Albumin 3.2 L Procalcitonin COVID-19 Source SARS-CoV-2 (PCR) 03/23/21 06:30 WBC RBC Hgb Hct MCV MCH MCHC RDW Plt Count MPV Immature Gran % Neutrophils % Lymphocytes % Monocytes % Eosinophils % Basophils % Nucleated RBC % Absolute Neutrophils Absolute Lymphocytes Absolute Monocytes Absolute Eosinophils Absolute Basophils VBG Lactate 0.8 Sodium Potassium Chloride Carbon Dioxide Anion Gap BUN Creatinine Estimated GFR/1.73 m2 Glucose Calcium Total Bilirubin AST ALT Alkaline Phosphatase Troponin I C-Reactive Protein Total Protein Albumin Procalcitonin < 0.1 COVID-19 Source SARS-CoV-2 (PCR)
--- NOTE | 2021-03-23 17:39 | NUR.NOTE ---
I was with DR. Marinelli at the bedside when she ordered me to dc the IVF for this patient. Nursing Note:
[2021-03-23] MEDS: Enoxaparin 40 MG/0.4 ML SYR SC (18:26)
[2021-03-23 19:50] VITALS: BP 165/64; PULSE 66; RESP 18; TEMP 37.1; O2SAT 93
[2021-03-23 23:31] VITALS: BP 130/75; PULSE 68; RESP 14; TEMP 36.5; O2SAT 91
[2021-03-24 03:30] VITALS: BP 151/75; PULSE 72; RESP 14; TEMP 36.1; O2SAT 92
[2021-03-24 07:27] LABS: Abs Immature Grans 0.03 10^3/uL (0.0-0.06); Absolute Basophil Count 0.05 10^3/uL (0.0-0.2); Absolute Eosinophil Count 0.14 10^3/uL (0.0-0.7); Absolute Lymphocyte Count 0.82 10^3/uL (1.2-3.4); Absolute Monocyte Count 0.73 10^3/uL (0.1-0.8); Absolute Neutrophil Count 5.32 10^3/uL (1.2-6.7); Basophils % 0.7; HGB 12.2 g/dL (11.2-15.7); Immature Grans % 0.4; Lymphocytes % 11.6; MCH 31.3 pg (27.0-33.0); MCV 94.9 fL (80-95); MPV 9.8 fL (8.0-11.0); Monocytes % 10.3; Nucleated RBC 0 %; Platelet Count 199 10^3/uL (130-400); RDW 13.2 % (11.7-14.6); RDW-SD 46.7 fL; WBC 7.09 10^3/uL (4.4-10.8)
[2021-03-24 07:40] LABS: Anion Gap 9.3 mmol/L (3-11); BUN 10 mg/dL (7-18); CO2 27.7 mmol/L (21.0-32.0); CREATININE 0.8 mg/dL (0.55-1.02); Calcium 8.6 mg/dL (8.5-10.1); Chloride 106 mmol/L (98-107); Glucose 84 mg/dL (74-106); Magnesium 1.9 mg/dL (1.8-2.4); Potassium 3.7 mmol/L (3.5-5.1); Sodium 143 mmol/L (136-145)
--- NOTE | 2021-03-24 09:08 | W.PM.DS.N ---
Date of service: 03/24/21 Time of Service: 09:15 DS: Diagnosis Discharge Diagnosis (1) Abdominal pain: Status: Acute (2) Leukocytosis, unspecified: Status: Resolved (3) DVT prophylaxis: Status: Acute (4) Discharge planning issues: Status: Acute Discharge Plan Disposition Patient Disposition: HOME Condition: Good Discharge Details Reason For Visit: Abdominal Pain Admit Date/Time: 03/22/21 20:12 Admit Provider: Sunny Hoyos Attending Provider: Sunny Hoyos Primary Care Provider: Ramin Singh Hospital Course Hospital Course: This 75-year-old female lives by herself and is here because of abdominal pain. She went out to her garden on the morning of admission to do some planting of bulbs and raking and after she came back into the house she developed severe low abdominal pain with radiation to her low back. She said it was quite sharp. She developed some diaphoresis and tried to go to the bathroom to have a bowel movement but she found some difficulty with that. The diaphoresis persisted and she came to the hospital for further evaluation. She continues having low abdominal pain but now there is some radiation to the right scapula. She does not recall having any prior history of this pain. She vomited once and she came here. She has had no nausea. About 11 years ago she had abdominal surgery / Whipple procedure;biliary cancer. She is not clear about the exact diagnosis. She has also had a cholecystectomy. She was evaluated in the emergency department with lab tests and a CT scan of the abdomen. Dr. Eduardo thought she should be admitted on observation with serial abdominal exams and repeat lab tests. She was found to have an elevated white blood cell count of 16,000 but her other labs were normal. CT scan shows no acute abnormalities. She did receive ondansetron and hydromorphone General surgery consulted and there was no indication for immediate intervention/surgery. It was suspected that she had an acute viral gastroenteritis. Her WBC count normalized and her diet was advanced and well tolerated. Follow up with PCP in 1-2 weeks. Home Meds and New Rx's Prescriptions: No Action No Known Home Meds RF: 0 Discharge Instructions Instructions: Gastroenteritis (GEN) Stand Alone Forms: Nursing Discharge Form Referrals: Ramin Singh [Primary Care Provider] - (Please call office on Friday to make follow up appointment for 1-2 weeks.) Activity:: Activity as Tolerated Equipment/Supplies:: No Equipment Needed Diet:: As Tolerated Discharge Orders Discharge Orders: Discharge Order (Routine); Ordered 03/24/21 Ordered By: Kostas Pelayo Discharge Data Discharge Date/Time-TO BE ENTERED AT DEPARTURE: 03/24/21 10:56 DS: Summary Time Spent with Patient providing and/or coordinating discharge services: Greater than 30 minutes Status at Discharge Functional status at discharge: independent ambulation Overall status at discharge: patient is back to baseline Mental Status: mental status grossly normal Speech and Movement: speech and movement normal Mood: congruent mood Affect: normal affect Exam Narrative Exam Narrative: General: Anxious elderly female, A&Ox3, appears quite comfortable HEENT: EOMI, MMM Heart: RRR, no m/r/g Lungs: CTAB Abdomen: soft, nontender, nondistended, + BS Extremities: no edema Const General: cooperative, healthy appearing and not ill appearing Orientation: alert, awake and oriented x3 Neck Neck: normal visual inspection and no lymphadenopathy Resp Effort & Inspection: normal respiratory effort and able to speak in complete sentences Auscultation: clear to auscultation bilaterally Cardio Rate: regular rate Rhythm: regular rhythm Heart Sounds: S1 normal, S2 normal, no gallops and no murmurs GI Inspection: normal to inspection and non-distended Palpation: soft, no guarding and nontender Skin General skin exam: no rashes or lesions noted Extrem General: no pedal edema and no calf tenderness Right lower extremity: no edema Left lower extremity: no edema Psych Appearance: grossly normal Mental Status: mental status grossly normal Speech and Movement: speech and movement normal Mood: congruent mood Affect: normal affect DS: Data Vitals/I&O Vitals and I&O: Vital Signs Temperature 36.1 C L 03/24/21 03:30 Temperature Source Tympanic 03/24/21 03:30 Pulse 72 03/24/21 03:30 Pulse Rhythm Regular 03/23/21 17:30 Respiratory Rate 14 03/24/21 03:30 Respiratory Effort 03/24/21 03:30 Respiratory Depth Normal 03/24/21 03:30 Respiratory Pattern Normal 03/24/21 03:30 Blood Pressure 151/75 H 03/24/21 03:30 Blood Pressure Position Supine 03/22/21 12:59 Pulse Oximetry 92 03/24/21 03:30 Oxygen Delivery Method Room Air 03/24/21 03:30 Oxygen Flow Rate 0 03/24/21 03:30 Pain Level 0 03/24/21 03:30 Intake & Output 03/23/21 03/23/21 03/24/21 11:59 23:59 11:59 Intake Total 1000 / 1000 Output Total 500 / 1200 700 / 1200 Balance -500 / -200 300 / -200 Intake: IV 1000 / 1000 Output: Urine 500 / 1200 700 / 1200 Other: Urine Color Light Juju Yellow Urine Appearance Clear Clear Urine Odor None Voiding Methods Toilet Toilet Data Completed and Pending Labs on day of discharge: Labs from last 24 hours 03/24/21 03/24/21 06:10 06:10 WBC 7.09 RBC 3.90 L Hgb 12.2 Hct 37.0 MCV 94.9 MCH 31.3 MCHC 33.0 RDW 13.2 Plt Count 199 MPV 9.8 Immature Gran % 0.4 Neutrophils % 75.0 Lymphocytes % 11.6 Monocytes % 10.3 Eosinophils % 2.0 Basophils % 0.7 Nucleated RBC % 0 Absolute Neutrophils 5.32 Absolute Lymphocytes 0.82 L Absolute Monocytes 0.73 Absolute Eosinophils 0.14 Absolute Basophils 0.05 Sodium 143 Potassium 3.7 Chloride 106 Carbon Dioxide 27.7 Anion Gap 9.3 BUN 10 Creatinine 0.8 Estimated GFR/1.73 m2 >= 60.00 Glucose 84 Calcium 8.6 Magnesium 1.9 PFSH Surgical History History of Whipple procedure Social History Smoking/Tobacco Use Status: Former Tobacco Use Smoking risk assessment performed?: Yes Alcohol Intake: current Alcohol Intake frequency: 0-2 drinks per day Alcohol type: wine Substance use type: does not use Do you feel safe at home: Yes Do you feel safe in your relationship?: Yes
[2021-03-24 09:31] VITALS: BP 147/79; PULSE 87; RESP 16; TEMP 36.9; O2SAT 96
--- NOTE | 2021-03-24 09:54 | PDOC.CMDIS ---
- If Service Date Differs Date of service: 03/24/21 Time of Service: 09:54 LACE Index Scoring Tool - Questions: Length of Stay (in days): 2 Acuity (Admit via E.D.?): Yes Comorbidities: Any Tumor E.D. Visits: 1 - Answers: Total Score: 8 Risk of Readmission: Low Risk Care Management Discharge Reason for Hospitalization: Abdominal Pain Discharge Plan: Discharge home with no new services via private vehicle with friend. Follow up with PCP in 1-2 weeks. Patient/Family Education Needs: Review discharge instructions and plan to follow up with PCP, ask me three.
[2021-03-26 11:47] LABS: CA 19-9 12 U/mL (<35)
== END 2021-03-24 10:56 | disposition home or self-care (01) ==
LOC: ER 18:23 → MS 21:26
PROVIDERS: Internal Medicine; Surgery; Admitting Provider Family Medicine; Emergency Provider Student in an Organized Health Care Education/Training Program; PCP Internal Medicine; Visit Provider Family Medicine
DX: A08.4 Viral intestinal infection, unspecified (principal); R61 Generalized hyperhidrosis; Z87.891 Personal history of nicotine dependence; Z20.822 Contact with and (suspected) exposure to COVID-19; K57.30 Diverticulosis of large intestine without perforation or abscess without bleeding; Z85.89 Personal history of malignant neoplasm of other organs and systems
CPT/HCPCS: 36415; 80048; 80053; 83690; 84145; 87635; 93005; 96361; 96374; 96375; 99213; 99285; J1650; 71045; 71046; 74174; 74177; 81003; 81015; 83605; 83735; 84484; 85025; 86140; 86301; 93010; 99217; 99219; 99224; G0378; J2405; J3490

== ENCOUNTER → 2022-04-03 01:31 | Outpatient (CLI) | payer MEDICARE, SELFPAY ==
--- NOTE | 2022-04-03 07:15 | DI.RAD_ITS ---
Exam(s) XR LUMBAR SPINE COMPLETE EXAM: XR LUMBAR SPINE COMPLETE CLINICAL HISTORY: evaluate vert spacing, bony path,low back pain, m54.50. TECHNIQUE: 2D digital imaging was performed. Five views. COMPARISON: No exams were available for comparison FINDINGS: BONES: No fracture or destructive lesion. Vertebral body heights are maintained. facet hypertrophy identified, greatest at L4-5 and L5-S1.. DISKS: Moderate to severe disc space narrowing L3-4 through L5-S1. ALIGNMENT: Lumbar spinal alignment is within normal limits. SOFT TISSUE: Suture material left upper quadrant. Surgical clips right upper quadrant. Aorta calcif ied but appears normal in diameter. IMPRESSION: Degenerative disc changes and facet degenerative changes greatest in the the lower lumbar spine. DATA REPOSITORY: RADIATION DOSE DELIVERED:
== END ==
PROVIDERS: PCP Student in an Organized Health Care Education/Training Program; Visit Provider Student in an Organized Health Care Education/Training Program
DX: M54.59 Other low back pain (principal); M51.37 Other intervertebral disc degeneration, lumbosacral region; M47.817 Spondylosis without myelopathy or radiculopathy, lumbosacral region
CPT/HCPCS: 72110

== ENCOUNTER 2022-05-21 03:07 | Outpatient (CLI) | payer MEDICARE, SELFPAY ==
[2022-05-21 08:08] LABS: HCT 43.2 % (36.0-46.0); HGB 14.1 g/dL (11.2-15.7); MCH 31.8 pg (27.0-33.0); MCHC 32.6 % (32.0-36.0); MCV 97 fL (80-95); MPV 9.2 fL (8.0-11.0); Platelet Count 291 10^3/uL (130-400); RBC 4.44 10^6/uL (3.93-5.22); RDW 12.3 % (11.7-14.6); RDW-SD 44.4 fL; WBC 8.52 10^3/uL (4.4-10.8)
[2022-05-21 08:36] LABS: ALT 22 U/L (14-59); AST 21 U/L (15-37); Albumin 3.9 g/dL (3.4-5.0); Alkaline Phosphatase 130 U/L (46-116); Anion Gap 10.3 mmol/L (3-11); BUN 23 mg/dL (7-18); Bilirubin, Total 0.7 mg/dL (0.2-1.0); CO2 26.7 mmol/L (21.0-32.0); CREATININE 0.9 mg/dL (0.55-1.02); Calcium 9.1 mg/dL (8.5-10.1); Chloride 102 mmol/L (98-107); Estimated GFR 65.84 (mL/min/1.73m2); Glucose 112 mg/dL (74-106); Sodium 139 mmol/L (136-145); TSH (W/Ref FT4) 1.05 uIU/mL (0.36-3.74); Total Protein 7.4 g/dL (6.4-8.2)
[2022-05-21 11:30] LABS: Lab Add On Test DONE
[2022-05-21 12:47] LABS: Hemoglobin A1C 5.7 % (<5.7)
== END 2022-05-21 03:08 | disposition home or self-care (01) ==
LOC: LBO 03:07
PROVIDERS: PCP Student in an Organized Health Care Education/Training Program; Visit Provider Student in an Organized Health Care Education/Training Program
DX: R73.09 Other abnormal glucose (principal); E78.5 Hyperlipidemia, unspecified; R42 Dizziness and giddiness; M54.59 Other low back pain; G89.29 Other chronic pain
CPT/HCPCS: 36415; 80053; 85027; 83036; 84443

== ENCOUNTER 2023-05-06 01:14 | Outpatient (CLI) | payer MEDICARE, SELFPAY ==
[2023-05-06 09:00] LABS: HCT 42.9 % (36.0-46.0); MCH 31.3 pg (27.0-33.0); MCHC 32.6 % (32.0-36.0); MCV 96 fL (80-95); MPV 8.8 fL (8.0-11.0); Platelet Count 296 10^3/uL (130-400); RBC 4.48 10^6/uL (3.93-5.22); RDW 12.7 % (11.7-14.6); RDW-SD 45.3 fL; WBC 7.67 10^3/uL (4.4-10.8)
[2023-05-06 09:40] LABS: Folate > 20.0 ng/mL (8.6-20.0)
[2023-05-06 09:52] LABS: Calculated LDL 146 mg/dL (<100); Cholesterol 267 mg/dL (<200); HDL Cholesterol 98 mg/dL (40-60); Triglyceride 115 mg/dL (<150); Vitamin B12 293 pg/mL (193-986)
[2023-05-06 11:35] LABS: Vitamin D 25 Total 7.6 ng/mL (30-100)
== END 2023-05-06 01:15 | disposition home or self-care (01) ==
LOC: LBO 01:14
PROVIDERS: Absent Provider Student in an Organized Health Care Education/Training Program; PCP Student in an Organized Health Care Education/Training Program; Referring Provider Student in an Organized Health Care Education/Training Program; Visit Provider Student in an Organized Health Care Education/Training Program
DX: E55.9 Vitamin D deficiency, unspecified (principal); K57.30 Diverticulosis of large intestine without perforation or abscess without bleeding; K90.9 Intestinal malabsorption, unspecified; M81.0 Age-related osteoporosis without current pathological fracture; R53.1 Weakness; R53.83 Other fatigue; Z13.220 Encounter for screening for lipoid disorders
CPT/HCPCS: 36415; 80061; 82306; 85027; 82607; 82746

== ENCOUNTER → 2023-12-17 02:42 | Outpatient (CLI) | payer MEDICARE, SELFPAY ==
--- NOTE | 2023-12-17 07:00 | DI.RAD_ITS ---
Exam(s) XR CHEST 2V PA LATERAL EXAM: XR CHEST 2V PA LATERAL CLINICAL HISTORY: eval lung field, r/o small PNA, cough, RAD, prior cigar smoking, R05.9, TECHNIQUE: 2D digital imaging was performed. Two views. COMPARISON: CT CT ABDOMEN PELVIS CTA from 03/23/2021 CR XR CHEST 2V PA LATERAL from 03/23/2021 FINDINGS: HEART: Normal size. Aorta: Not dilated. PULMONARY VASCULATURE: Normal. LUNGS: Hyperinflated but clear. Emphysematous changes. PLEURAL SPACE: No pleural effusion or pneumothorax. BONE:Unremarkable for age. Soft tissues: Unremarkable. IMPRESSION: Hyperinflation. No evidence of pneumonia. DATA REPOSITORY: RADIATION DOSE DELIVERED:
--- NOTE | 2023-12-17 07:30 | DI.US_ITS ---
APPROVED REPORT EXAM: Comprehensive 2D, Doppler, and color-flow Echocardiogram Patient Location: Out-Patient [employer] Hand Engraver: Valeria Telles RDCS (AE) Indications: Evaluate EF, new SOB, Mild CHF, Easy fatigability Other Information Study Quality: Adequate Conclusion Normal left ventricular wall thickness and chamber size. Ejection fraction is 55%. Wall motion is n ormal Normal right ventricular size and function Both atria are normal in size Aortic valve is mildly sclerotic and trileaflet with mild regurgitation Mild mitral annular calcification. Mild mitral regurgitation Estimated right ventricular systolic pressure is 35 mmHg Wall motion Left Ventricle The left ventricle is normal size. The left ventricular systolic function is normal. The left ventric ular ejection fraction is within the normal range. There is normal left ventricular wall thickness. T here is normal LV segmental wall motion. There is no ventricular septal defect visualized. LVEF is 55 %. Right Ventricle The right ventricle is normal size. The right ventricular systolic function is normal. Atria The left atrium size is normal. The right atrium size is normal. The interatrial septum is intact wit h no evidence for an atrial septal defect. Aortic Valve The Aortic valve is mildly sclerotic. Aortic valve is trileaflet. There is no aortic valvular stenosi s. Mild aortic regurgitation. Mitral Valve Mild mitral annular calcification. No evidence of mitral valve stenosis. Mild mitral regurgitation. Tricuspid Valve The tricuspid valve is normal in structure. There is no tricuspid valve stenosis. Mild tricuspid regu rgitation. The RVSP is 35.3 mmHg. Pulmonic Valve The pulmonary valve is normal in structure. There is no pulmonic valvular stenosis. There is no pulmo shanta valvular regurgitation. Great Vessels The aortic root is normal in size. The ascending aorta is normal in size. Aortic arch is normal in ca liber. IVC is normal in size and collapses >50% with inspiration. Pericardium There is no pericardial effusion. 2D Dimensions IVSD d PLAX 0.75 cm F: 0.6-1.0 Ao Root d 3.25 cm F: 2.7 - 3.3 LVPW d PLAX 0.77 cm F: 0.6 - 1.0 Ao Asc Diam d 3.29 cm F: 2.3 - 3.1 LVID d PLAX 4.46 cm F: 3.8 - 5.2 LVDs 3.11 cm F: 2.2 - 3.5 LV EF Teichholz 57.8 % FS 30.28 % LV EDV (Teich) 90.7 mL LV ESV (Teich) 38.3 mL Auto EF LV EDV A4C 71.3 mL LV EDV A2C 66.4 mL LV EDV BP 68.2 mL LV ESV A4C 31.0 mL LV ESV A2C 30.0 mL LV ESV BP 30.5 mL LVEF(%) A4C 56.5 % LVEF(%) A2C 54.8 % LVEF(%) BP 55.3 % LV SV A4C 40.2 ml LV SV A2C 36.4 ml LV SV BP 37.7 ml LV CO A4C 3.0 L/min LV CO A2C 2.7 L/min LV CO BP 2.8 L/min HR A4C 75.00 BPM HR A2C 73.18 BPM LV EDV Index (BP) LA Volume LA Length A4C 3.9 cm LA Length A2C 4.2 cm LA Area A4C s 10.06 cm2 LA Area A2C s 8.16 cm2 LA Vol A4C A-L 22.17 mL LA Vol A2C A-L 13.41 mL LA Vol Biplane A-L 18.0 mL LA Vol/BSA A4C A-L LA Vol/BSA A2C A-L LA Vol/BSA BP A-L 11.8 mL/m2 LA Vol A4C MOD 20.6 mL LA Vol A2C MOD 12.3 mL LA Vol BP MOD 16.6 mL LV Diastology MV E' medial 0.071 (>0.07 m/s) MV E Vmax 0.63 (0.4-1.3 m/s) MV E/E' MED 8.78 (<14) MV A Vmax 0.90 (0.4-1.3 m/s) MV E' lateral 0.092 (>0.1 m/s) E/A Ratio 0.7 MV E/E' LAT 6.82 (<14) MV E' Average 0.082 m/s MV E/E'(average) 7.68 Aortic Valve AoV Vmax 1.06 m/s LVOT Vmax 1.03 m/s AoV Peak Grad 28.8 mmHg LVOT Peak Grad 4.2 mmHg AoV Area (Vmax) 2.76 cm2 LVOT VTI 0.190 m AoV VTI 0.207 m LVOT Mean Grad 1.7 mmHg AoV Mean Pete. 0.74 m/s LVOT SV 53.99 mL AoV Mean Grad 2.4 mmHg LVOT Diam s 1.90 cm AoV Area (VTI) 2.61 cm2 AV Regurg Peak Gr. 52.95 mmHg Velocity Ratio 0.97 AR Decel Craven 2.0m/sec2 AR DT 1915 msec AR PHT 555 msec AR Vmax 3.63 m/s Mitral Valve MV DT 231 (160-240 msec) MV Vmax TIPS 1.01 m/s MV Mean Grad 1.8 (<2mmHg) MV VTI 0.237 m Pulmonary Valve PV Vmax 0.93 (0.5-1.5 m/s) RVOT Vmax 0.83 m/s PV Peak Grad 3.5 mmHg RVOT Peak Gr. 2.7 mmHg PV Mean Pete 0.64 m/s RVOT VTI 0.167 m PV Mean Grad 1.9 mmHg RVOT Mean Gr. 1.3 mmHg Tricuspid Valve RA Pressure 3.00 mmHg TR Vmax 2.84 m/s TV S' 0.12 m/s TR Peak Grad 32.3 mmHg RVSP (TR) 35.3 mmHg
== END ==
PROVIDERS: PCP Student in an Organized Health Care Education/Training Program; Visit Provider Student in an Organized Health Care Education/Training Program
DX: R06.02 Shortness of breath (principal); R53.83 Other fatigue; R05.9 Cough, unspecified; J45.909 Unspecified asthma, uncomplicated; Z87.891 Personal history of nicotine dependence; Z90.410 Acquired total absence of pancreas; Z90.49 Acquired absence of other specified parts of digestive tract; I08.0 Rheumatic disorders of both mitral and aortic valves; I50.9 Heart failure, unspecified
CPT/HCPCS: 93306; 71046